=== PATIENT | female | born 1945 | race Caucasian/White ===

== ENCOUNTER 2018-09-12 17:59 | Emergency (ER) | payer OTHER, MEDICAID ==
[~2018-09-12] VITALS: Ht 165.1 cm; Wt 77.6 kg
[2018-09-12 18:06] VITALS: Ht 165.1 cm; Wt 77.6 kg
[2018-09-12 18:49] LABS: BASOPHIL % 0.4 % (0-2); PLATELET COUNT 212 x10^3mcL (130-400); RED CELL DISTRIBUTION WIDTH 13.1 % (11.5-14.5)
[2018-09-12 18:55] LABS: CALCIUM 8.7 mg/dL (8.5-10.1); CARBON DIOXIDE 31.9 mmol/L (21-32); CREATININE SERUM 1.2 mg/dL (0.6-1.0); POTASSIUM SERUM 3.5 mmol/L (3.5-5.1)
[2018-09-12 22:22] VITALS: BP 146/72
== END 2018-09-12 22:17 | disposition home or self-care (01) ==
LOC: ED 17:59
PROVIDERS: Emergency Medicine
DX: R42 Dizziness and giddiness (principal); R11.10 Vomiting, unspecified; I10 Essential (primary) hypertension
CPT/HCPCS: 36415; J7040; Q0162